=== PATIENT | male | born 1940 | race Caucasian/White ===

== ENCOUNTER 2017-10-18 16:33 | Outpatient (CLI) | payer OTHER | END 2017-10-18 16:43 | disposition home or self-care (01) | LOC: LAB 16:33 | DX: R97.20 Elevated prostate specific antigen [PSA] (principal) ==

== ENCOUNTER 2017-11-13 07:03 | Outpatient (CLI) | payer OTHER | END 2017-11-13 07:07 | disposition home or self-care (01) | LOC: SONOGRAMA 07:03 | DX: R97.20 Elevated prostate specific antigen [PSA] (principal) ==

== ENCOUNTER 2017-12-04 09:06 | Outpatient (CLI) | payer OTHER | END 2017-12-04 09:14 | disposition home or self-care (01) | LOC: NUCLEAR 09:06 | DX: C61 Malignant neoplasm of prostate (principal) | CPT/HCPCS: 78306; 78320; A9503 ==

== ENCOUNTER 2017-12-24 09:02 | Outpatient (CLI) | payer OTHER | END 2017-12-24 09:08 | disposition home or self-care (01) | LOC: TOM 09:02 | DX: N40.0 Benign prostatic hyperplasia without lower urinary tract symptoms (principal); C61 Malignant neoplasm of prostate | CPT/HCPCS: 74178; Q9965 ==